=== PATIENT | male | born 1985 | race Caucasian/White ===

== ENCOUNTER 2016-09-15 12:23 | Emergency (ER) | payer SELFPAY ==
[~2016-09-15] VITALS: Wt 79.0 kg
[2016-09-15] MEDS ORDERED: NAPR-260 PO (14:54)
[2016-09-15] MEDS ORDERED: IBUPROFEN 600 MG TAB PO ONE (15:00)
--- NOTE | 2016-09-15 16:36 | ERD ---
ER Documentation Chief Complaint Date/Time DATE: 09/15/16 TIME: 16:32 Chief Complaint RIGHT ARM PAIN NON TRAUMATIC FOR 1 MONTHS. HPI 31 year old male comes in with right arm pain x 1 month. 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 It is shooting, mild to moderate and worse after he moves his arm. He denies trauma, fever, chills or swelling. ROS All systems reviewed and are negative except as per history of present illness. Medications Home Meds Active Scripts Naproxen* (Naprosyn*) 500 Mg Tablet, 500 MG PO BID Y for PAIN AND/OR INFLAMMATION, #30 TAB Prov:BIRGIT MURRY PA-C 09/15/16 PMhx/Soc Medical and Surgical Hx: pt denies Medical Hx, pt denies Surgical Hx Physical Exam Vitals Vital Signs Date Time Temp Pulse Resp B/P Pulse Ox O2 Delivery O2 Flow Rate FiO2 09/15/16 12:35 98.1 85 21 141/81 98 Physical Exam General: Well-developed, well-nourished. The patient appears in no acute distress. HEENT: Head is normocephalic, atraumatic. No scleral icterus. Neck: Supple. Nontender. No masses, full ROM> Lungs: Clear to auscultation. Normal air movement. Heart: Regular rate and rhythm. S1 and S2 are normal. No murmurs, gallops, or rubs. Abdomen: Soft, nontender, nondistended. Bowel sounds are normoactive. Extremities: Radian, ulnar, median nerve intact bilaterally, tactical air defense controller strength 5/5 bilaterally. Thenar prominence is normal. Pulses 2+ bilaterally. There is no edema. Neurologic: Alert and oriented 3. No focal deficits. Skin: Normal turgor. No rash or lesions. Results 24 hrs Current Medications Medications (Trade) Dose Ordered Sig/Amanda Route PRN Reason Start Time Stop Time Status Last Admin Dose Admin Ibuprofen (Motrin) 600 mg ONCE ONCE PO 09/15/16 15:00 09/15/16 15:01 DC 09/15/16 15:18 Procedures/MDM ED course: He was given Motrin for pain. Patient's right wrist was placed in a Velcro wrist splint. MDM: 31-year-old male comes with right upper extremity pain, appears to be radiculopathy. Will be given Motrin, asked to use a wrist brace as needed, I have advised that the patient may follow-up with a primary care physician, if he does not have one a list was provided to him to see a physical therapist. There is no evidence of any infectious processes, nerve compression, stroke, CVA , neuropraxia, brachial plexus injury, DVT, cellulitis. Departure Diagnosis: Primary Impression: Right arm pain Condition: Good Patient Instructions: Radiculopathy, Cervical Referrals: [facility] YOU HAVE RECEIVED A MEDICAL SCREENING EXAM AND THE RESULTS INDICATE THAT YOU DO NOT HAVE A CONDITION THAT REQUIRES URGENT TREATMENT IN THE EMERGENCY DEPARTMENT. FURTHER EVALUATION AND TREATMENT OF YOUR CONDITION CAN WAIT UNTIL YOU ARE SEEN IN YOUR DOCTORS OFFICE WITHIN THE NEXT 1-2 DAYS. IT IS YOUR RESPONSIBILITY TO MAKE AN APPOINTMENT FOR FOLOW-UP CARE. IF YOU HAVE A PRIMARY DOCTOR --you should call your primary doctor and schedule an appointment IF YOU DO NOT HAVE A PRIMARY DOCTOR YOU CAN CALL OUR PHYSICIAN REFERRAL HOTLINE AT IF YOU CAN NOT AFFORD TO SEE A PHYSICIAN YOU CAN CHOSE FROM THE FOLLOWING [facility] [address] [facility]. [facility] [address] [facility]. [facility] [address] [facility] [facility] [address] [facility]. [facility] [address] [facility]. [facility]. [address] [facility]. [facility] YOU HAVE RECEIVED A MEDICAL SCREENING EXAM AND THE RESULTS INDICATE THAT YOU DO NOT HAVE A CONDITION THAT REQUIRES URGENT TREATMENT IN THE EMERGENCY DEPARTMENT. FURTHER EVALUATION AND TREATMENT OF YOUR CONDITION CAN WAIT UNTIL YOU ARE SEEN IN YOUR DOCTORS OFFICE WITHIN THE NEXT 1-2 DAYS. IT IS YOUR RESPONSIBILITY TO MAKE AN APPOINTMENT FOR FOLOW-UP CARE. IF YOU HAVE A PRIMARY DOCTOR --you should call your primary doctor and schedule and appointment IF YOU DO NOT HAVE A PRIMARY DOCTOR YOU CAN CALL OUR PHYSICIAN REFERRAL HOTLINE AT . IF YOU CAN NOT AFFORD TO SEE A PHYSICIAN YOU CAN CHOSE FROM THE FOLLOWING [facility] INSTITUTIONS: [facility] [address] [place] [address] [facility] [address] [place] [address] [facility] + [facility] [address] [place] [address] [facility] URGENT CARE/SPECIALTIES Additional Instructions: Llame al doctor MAANA y jonnie adelaida BETO PARA DENTRO DE 1-2 BURNS.Dgale a la secretaria que nosotros le instruimos hacer esta beto.Avise o llame si carvajal condicin se empeora antes de la beto. Regresa aqui si peor o no mejor. BIRGIT MURRY PA-C Sep 15, 2016 16:36
== END 2016-09-15 15:25 | disposition home or self-care (01) ==
LOC: FTE 12:23
DX: M79.601 Pain in right arm (principal)